=== PATIENT | female | born 1955 | race Caucasian/White ===

== ENCOUNTER 2018-12-02 13:49 | Inpatient (IN) | payer MEDICARE ==
--- NOTE | 2018-12-02 14:17 | ED Physician Chart ---
ED Chief Complaint/HPI - Patient Information Date Seen:: 12/02/18 Time Seen:: 14:12 Chief Complaint:: agitation History of Present Illness:: this is a 63 yo female who is here because of concern over her mental condition. she will be evaluated for placement in the psych unit in this hospital Allergies:: Allergies Allergy/AdvReac Type Severity Reaction Status Date / Time No Known Allergies Allergy Verified 12/02/18 14:04 Vitals:: Vital Signs - 8 hr 12/02/18 14:04 Temp 98.4 F HR 91 RR 17 BP 116/70 O2 Sat % 96 Historian:: Patient, Medical Records Review:: Nurse's Note Reviewed, Transfer documents Reviewed ED Review of Systems - Review of Systems General/Constitutional: No fever, No chills, No weight loss, No weakness, No diaphoresis, No edema, No loss of appetite Skin: No skin lesions, No rash, No bruising Head: No headache, No light-headedness Eyes: No loss of vision, No pain, No diplopia ENT: No earache, No nasal drainage, No sore throat, No tinnitus Neck: No neck pain, No swelling, No thyromegaly, No stiffness, No mass noted Cardio Vascular: No chest pain, No palpitations, No PND, No orthopnea, No edema Pulmonary: No SOB, No cough, No sputum, No wheezing GI: No nausea, No vomiting, No diarrhea, No pain, No melena, No hematochezia, No constipation, No hematemesis G/U: No dysuria, No frequency, No hematuria Musculoskeletal: No bone or joint pain, No back pain, No muscle pain Endocrine: No polyuria, No polydipsia Psychiatric: Prior psych history, No depression, No anxiety, No suicidal ideation Hematopoietic: No bruising, No lymphadenopathy Allergic/Immuno: No urticaria, No angioedema Neurological: No syncope, No focal symptoms, No weakness, No paresthesia, No headache, No seizure, No dizziness, No confusion, No vertigo ED Past Medical History - Past Medical History Obtainable: Yes Past Medical History: Other ( psychosis, and breast cancer) Family History: None Social History: Non Smoker, No Alcohol, No Drug Use, Surgical History: other (left breast biopsy) Psychiatricy History: Schizophrenia, Bipolar Medication: Reviewed Family Medical History - Family Member Mother History Unknown: Yes ED Physical Exam - Physical Examination General/Constitutional: Awake, Well-developed, well-nourished, Alert, No distress, GCS 15, Non-toxic appearing, Ambulatory Head: Atraumatic Eyes: Lids, conjuctiva normal, PERRL, EOMI Skin: Nl inspection, No rash, No skin lesions, No ecchymosis, Well hydrated, No lymphadenopathy ENMT: External ears, nose nl, Nasal exam nl, Lips, teeth, gums nl Neck: Nontender, Full ROM w/o pain, No JVD, No nuchal rigidity, No bruit, No mass, No stridor Respiratory: Nl effort/Exclusion, Clear to Auscultation, No Wheeze/Rhonchi/Rales Cardio Vascular: RRR, No murmur, gallop, rubs, NL S1 S2 GI: No tenderness/rebounding/guarding, No organomegaly, No hernia, Normal BS's, Nondistended, No mass/bruits, No McBurney tenderness : No CVA tenderness Extremities: No tenderness or effusion, Full ROM, normal strength in all extremities, No edema, Normal digits & nails Neuro/Psych: Alert/oriented, DTR's symmetric, Normal sensory exam, Normal motor strength, Judgement/insight normal, Mood normal (depressd mood), Normal gait, No focal deficits Misc: Normal back, No paraspinal tenderness ED Labs/Radiology/EKG Results - Radiology Results Results: chest x-ray = nad - EKG Interpretations EKG Time:: 14:02 Rate & Rhythm: rate = 103, sinus [place]: left axis ED Assessment - Assessment General Assessment: psychosis ED Septic Shock - . Is Septic Shock (SBP<90, OR Lactate>4 mmol\L) present?: No - <6hrs of presentation: Vital Signs: Vital Signs - 8 hr 12/02/18 14:04 Temp 98.4 F HR 91 RR 17 BP 116/70 O2 Sat % 96 ED Reassessment (Disposition) - Reassessment Reassessment Condition:: Unchanged - Diagnosis Diagnosis:: psychosis - Patient Disposition Discharge/Transfer:: Acute Care w/in this hosp Admitting Medical Physician:: Stanislaw Kemp Admitting Psych Physician:: Lonny Santana
[2018-12-02 14:27] LABS: % BASOPHILS 4.1 % (0.0-2.0); % EOSINOPHILS 1.8 % (0.0-5.0); % LYMPHOCYTES 7.1 % (20.0-50.0); % MONOCYTES 9.6 % (2.0-10.0); % NEUTROPHILS 77.4 % (40.0-80.0); BASOPHILE ABSOLUTE 0.3 Th/cumm (0-0.2); EOSINOPHILE ABSOLUTE 0.1 Th/cmm (0.1-0.4); HEMATOCRIT 38.3 % (41.0-60); HEMOGLOBIN 12.6 gm/dL (12-16); LYMPHOCYTE ABSOLUTE 0.5 Th/cmm (1.5-3.0); MEAN CELL VOLUME 98.6 fl (81-100); MEAN CORPUSCULAR HEMOGLOBIN 32.4 pg (27.0-31.0); MEAN CORPUSCULAR HGB CONC 32.8 pg (28.0-36.0); MEAN PLATELET VOLUME 7.9 fl; MONOCYTE ABSOLUTE 0.7 Th/cmm (0.3-1.0); NEUTROPHILE ABSOLUTE 5.2 Th/cmm (1.8-8.0); PLATELET COUNT 322 Th/cmm (150-400); RED BLOOD COUNT 3.89 Mil/cmm (3.80-5.20); RED CELL DISTRIBUTION WIDTH 13.8 % (11.5-20.0); WHITE BLOOD COUNT 6.8 Th/cmm (4.8-10.8)
--- NOTE | 2018-12-02 14:32 | Diagnostic Imaging Report ---
Portable chest x-ray HISTORY: Cough There is a poor inspiration. The heart appears to be somewhat enlarged. Atherosclerotic calcination seen in the aorta. Deformity consistent with old left rib fractures noted. No hilar or mediastinal abnormalities. A vascular catheter tip is in the superior vena cava near the junction with the right atrium. Arthritic changes noted about the shoulder regions. IMPRESSION: 1. No definite acute pulmonary processes 2. Deformity consistent with old left rib fracture 3. Cardiomegaly with atherosclerotic vascular changes
[2018-12-02 14:46] LABS: ALB/GLOB RATIO 2.1 (1.0-1.8); ALBUMIN 3.9 gm/dL (3.7-5.3); ALKALINE PHOSPHATASE 61 U/L (34-104); ANION GAP 14.8 (7.0-16.0); BILIRUBIN,TOTAL 0.4 mg/dL (0.3-1.0); BUN - UREA NITROGEN 20 mg/dL (7-25); CALCIUM SERUM 8.8 mg/dL (8.6-10.3); CARBON DIOXIDE 23.1 mEq/L (21.0-31.0); CHLORIDE 100 mEq/L (98-107); CREATININE - SERUM 0.9 mg/dL (0.6-1.2); GFR AFRICAN-AMERICAN > 60.0 ml/min (>90); GFR NON AFRICAN-AMERICAN > 60.0 ml/min; GLUCOSE 174 mg/dL (70-105); POTASSIUM SERUM 3.9 mEq/L (3.5-5.1); SGOT 12 U/L (13-39); SGPT/ALT 8 U/L (7-52); SODIUM SERUM 134 mEq/L (136-145); TOTAL PROTEIN,SERUM 5.8 gm/dL (6.0-8.3)
[2018-12-02 14:46] LABS: INR 1.09 (0.5-1.4); PROTHROMBIN TIME (TEST) 11.3 SECONDS (9.5-11.5)
[2018-12-02] MEDS ORDERED: guaiFENesin 200 MG/10 ML UDC PO PRN (20:44)
[2018-12-02] MEDS ORDERED: Maalox 30 mL Cup PO PRN (20:44)
[2018-12-02] MEDS ORDERED: Ipratropium Neb 0.5 mg/2.5 mL UD HHN PRN (20:44)
[2018-12-02] MEDS ORDERED: Albuterol Nebulizer 2.5mg/3mL HHN PRN (20:44)
[2018-12-02 21:38] VITALS: BP 126/85
[2018-12-02] MEDS: D5-0.45NS 1,000 ML IV SCH (22:08)
[2018-12-03 00:40] LABS: URINE SOURCE CLEAN C
[2018-12-03 00:43] LABS: URINE BILIRUBIN NEGATIVE (NEGATIVE); URINE BLOOD TRACE (NEGATIVE); URINE GLUCOSE (UA) NEGATIVE (NEGATIVE); URINE KETONE NEGATIVE (NEGATIVE); URINE LEUKOCYTE ESTERASE SMALL (NEGATIVE); URINE MICROSCOPIC INDICATED? YES; URINE NITRATE NEGATIVE (NEGATIVE); URINE PROTEIN TRACE mg/dL (NEGATIVE); URINE UROBILINOGEN 0.2 E.U./dL (0.2 - 1.0)
[2018-12-03 00:47] LABS: URINE CLARITY HAZY (CLEAR); URINE COLOR YELLOW
[2018-12-03 00:48] LABS: URINE RBC 0-2 /hpf (0-5)
[2018-12-03 00:49] LABS: URINE BACTERIA MODERATE /hpf (NONE SEEN); URINE EPITHELIAL CELLS MODERATE /lpf (FEW); URINE WBC 25-50 /hpf (0-5)
[2018-12-03] MEDS: Levothyroxine 0.05 Mg Tab PO SCH (06:46)
--- NOTE | 2018-12-03 08:50 | Diagnostic Imaging Report ---
Head CT without intravenous contrast Indication: Metastatic disease Comparison: None Technique: Axial images were obtained from the vertex to the skull base without IV contrast. Coronal reconstructions were made. Total DLP: 725, [id number] FINDINGS: Exam is limited due to lack of IV contrast. Images of the brain obtained without contrast demonstrate no evidence of acute hemorrhage. No mass effect or midline shift. No evidence of a skull fracture or focal soft tissue swelling. There may have been old nasal fractures. Note is made of abnormal sclerotic densities seen along the skull base including the clivus. There are also is suggestion of additional subtle calvarial sclerotic lesions. The visualized paranasal sinuses are clear. IMPRESSION: Limited exam due to lack of IV contrast. Abnormal sclerotic density seen along the skull base including the clivus region. There is also suggestion of additional subtle calvarial sclerotic lesions. Findings may be due to metastatic disease. Recommend clinical correlation and further assessment with nuclear medicine bone scan. No acute intracranial abnormality identified. No gross intracranial masses on this noncontrast exam. Further assessment with IV contrast if indicated.
[2018-12-03] MEDS: Pantoprazole 40 mg EC Tab PO SCH (09:47)
[2018-12-03] MEDS: Tolterodine Tartrate 4 mg ER Cap PO SCH (09:47)
[2018-12-03] MEDS ORDERED: cefTRIAXone 1 GM in Sodium Chloride 0.9% 50 ML IV SCH (13:00)
--- NOTE | 2018-12-03 13:07 | History & Physical ---
ADMIT DATE: 12/02/2018 CHIEF COMPLAINT: Increasing agitation. HISTORY OF PRESENT ILLNESS: This is a 63-year-old female with history of metastatic left breast cancer, bipolar disorder, gastroesophageal reflux disease, gait instability, admitted secondary to increasing agitation. The patient has a PICC line in the right upper extremity, unable to be cleared for Geropsych admission. PAST MEDICAL HISTORY: As mentioned in history of present illness. PAST SURGICAL HISTORY: Status post right upper extremity PICC line, left breast lumpectomy as well as implants. ALLERGIES: No known drug allergies. MEDICATIONS: Lasix ____ Depakote, Colace, fentanyl 100 mcg, pantoprazole, Seroquel, Risperdal, trazodone, ____ FAMILY HISTORY: Denies diabetes or coronary artery disease. SOCIAL HISTORY: Nonsmoker, nondrinker. Intermittent drug use. She is with one child. Used to be a teacher. REVIEW OF SYSTEMS: GENERAL: Complains not feeling well. HEENT: No blurred vision or pain. LUNGS: No diagnosis of chronic obstructive pulmonary disease or asthma. HEART: The patient denies hypertension. ABDOMEN: The patient with on and off pain, history of reflux. HEMATOLOGY/ONCOLOGY: The patient with a left breast cancer, being followed by Dr. Diaz; last chemo was about last week. PSYCHIATRIC: Stable. PHYSICAL EXAMINATION: VITAL SIGNS: Blood pressure 143/85, respiratory rate 18, pulse 93, and temperature 98.2. GENERAL: An elderly female, appears chronically ill. NECK: Supple. No mass. LUNGS: Equal breath sounds, few rhonchi. HEART: Regular rate and rhythm without appreciable murmur. ABDOMEN: Soft and globular. Positive bowel sounds. EXTREMITIES: Positive excoriation. NEUROLOGIC: Limited. Right upper extremity PICC line. LABORATORY DATA: WBC 6, hemoglobin 12, and platelets 322. PTT 23. Sodium 134, potassium 3.9, BUN 20, creatinine 0.9, blood sugar 174. TSH 2.02. UA: Trace wbc and moderate bacteria. ASSESSMENT AND PLAN: Agitation, urinary tract infection, metastatic left breast cancer, hyperglycemia, hyponatremia, hypothyroidism, gait instability, gastroesophageal reflux disease. PLAN: I will continue the patient on oxygen ____ continue on IV antibiotic. Continue pain medication. We will refer the patient to Psychiatry as well as Oncology. Please see my orders. [facility]# [id number]
[2018-12-03] MEDS ORDERED: fentaNYL 100 mcg/hr Tdm Patch TD SCH (14:00)
[2018-12-03] MEDS: D5-0.45NS 1,000 ML IV SCH (17:50)
--- NOTE | 2018-12-03 21:04 | Consultation ---
DATE OF CONSULTATION: 12/03/2018 REQUESTING PHYSICIAN: Stanislaw Kemp DO REASON FOR CONSULTATION: History of psychosis. HISTORY OF PRESENT ILLNESS: This patient is a 63-year-old woman admitted for agitation and psychosis. This patient reported to have been diagnosed to have schizoaffective disorder and has been on multiple medications. The patient is also reported to have been diagnosed to have a history of metastatic left breast cancer and the patient is being followed up by Dr. Goldstein. The patient has been admitted over here because of increasing agitation. The patient has a PICC line in right upper extremity. A psychiatric consultation is called to address the issue of the agitation. The patient is interviewed: Staff was spoken to. The patient is being followed up by Dr. Funez on an outpatient basis. The patient is currently on Depakote and Seroquel, Risperdal, and trazodone. During the interview, the patient has been noted to be very anxious and is stating that she is very much worried about the Trump is saying on the TV and she states that her life is affected by it. The patient has been having difficult time to cope with the stress. Sleep is noted to be poor. Appetite is also noted to be poor. PAST PSYCHIATRIC HISTORY: The patient is stating that she is under the psychiatric treatment. She was hospitalized once before, but she is not able to give the details. MEDICAL HISTORY: The patient is reported to have a history of metastatic breast CA and the patient has GERD and the patient is being medically stabilized at this time. PAST PSYCHIATRIC HISTORY: Please refer to the above. SOCIAL HISTORY: The patient is living with her family and the patient has been diagnosed with the cancer of the breast, but there is no history of any diabetes or hypertension. 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 MENTAL STATUS EXAMINATION: The patient is a 63-year-old, looking her stated age. The patient has been presenting with the tremor in both the extremities and she would stop shaking for a while and then goes on. Mood is noted to be anxious and depressed. Affect is constricted. The patient is paranoid. The patient has been focused on Trump whom she has been seeing on the TV. The patient is not presenting with any command hallucinations. The patient is not suicidal or homicidal. Insight and judgment are noted to be fair. Impulse control seems to be fair. The patient has been stating that she is scheduled to see Dr. Funez pretty soon. The patient is alert and oriented to time, place and person. DIAGNOSTIC IMPRESSION: AXIS I: Bipolar disorder, mixed with psychotic symptoms, rule out schizoaffective disorder. AXIS II: None. AXIS III: As per Dr. Kemp. IMMEDIATE TREATMENT PLAN: The patient is going to be continued on her current medications the Depakote, Risperdal, and Seroquel. Once the patient is medically stabilized, the patient is possibly going to be discharged to the family for followup on outpatient basis. JOB# [id number]
--- NOTE | 2018-12-03 21:39 | Consultation ---
DATE OF CONSULTATION: HISTORY OF PRESENT ILLNESS: This is a patient who is well known to me. The patient has a history of breast carcinoma and the patient has been on chemotherapy. The patient has stage IV cancer. The patient recently was found to have excessive amount of nausea. The patient's medicines were readjusted and the patient's nausea is much better. Recently, the patient has been more agitated. She has been having shakes and agitation. She is unable to sleep. The patient was brought to the Emergency Room from where the patient was admitted to the hospital. The patient has no chest pain, has no shortness of breath. However, the patient is very agitated and she is having shakes mostly of the upper extremities. The patient has a history of breast carcinoma, which is stage IV cancer with bone metastatic disease. The patient recently had a PET scan, which showed cancer confined to the bones and the patient is on chemotherapy and the patient is also on anastrozole. The patient also has a history of bipolar and has been recently agitated. PHYSICAL EXAMINATION: GENERAL: The patient appears agitated. The patient is tired, says she has insomnia. HEENT: Normocephalic. NECK: Supple. JVP is not raised. Thyroid is not palpable and trachea central. CHEST: Symmetrical, both parts of the chest moving equally with respiration. LUNGS: There are normal breath sounds bilaterally. CARDIOVASCULAR: S1, S2 normal. There is no S3. ABDOMEN: Soft. Liver, spleen, kidney not palpable. No masses, no ascites, no shifting dullness. EXTREMITIES: No evidence of thrombophlebitis or edema. IMPRESSION: 1. Breast carcinoma with bony metastatic disease stage IV cancer. The patient is on anastrozole and chemotherapy 2. Bipolar, depression, agitation. PLAN: The patient oncologically is stable. The patient needs a psych evaluation and may be the adjustment of the medications. Thank you for allowing me to participate in the care of this patient. We will follow with you in the hospital as needed. JOB# [id number]
[2018-12-04 05:42] LABS: HEMATOCRIT 36.1 % (41.0-60); MEAN CELL VOLUME 98.2 fl (81-100); MEAN CORPUSCULAR HEMOGLOBIN 32.5 pg (27.0-31.0); MEAN CORPUSCULAR HGB CONC 33.1 pg (28.0-36.0); MEAN PLATELET VOLUME 8.8 fl; PLATELET COUNT 313 Th/cmm (150-400); RED BLOOD COUNT 3.68 Mil/cmm (3.80-5.20); RED CELL DISTRIBUTION WIDTH 13.7 % (11.5-20.0)
[2018-12-04 05:57] LABS: ANION GAP 13.6 (7.0-16.0); BUN - UREA NITROGEN 14 mg/dL (7-25); CALCIUM SERUM 9.2 mg/dL (8.6-10.3); CARBON DIOXIDE 23.2 mEq/L (21.0-31.0); CHLORIDE 106 mEq/L (98-107); CREATININE - SERUM 0.7 mg/dL (0.6-1.2); GFR AFRICAN-AMERICAN > 60.0 ml/min (>90); GFR NON AFRICAN-AMERICAN > 60.0 ml/min; GLUCOSE 113 mg/dL (70-105); MAGNESIUM 2.2 mg/dL (1.9-2.7); POTASSIUM SERUM 3.8 mEq/L (3.5-5.1); SODIUM SERUM 139 mEq/L (136-145)
[2018-12-04 06:27] LABS: BAND NEUTROPHILE 0 % (0-10); EOSINOPHIL 2 % (0-5); LYMPHOCYTE 7 % (20-50); MONOCYTE 16 % (2-10); NEUTROPHILS 75 % (40-80)
[2018-12-04 06:28] LABS: BASOPHIL 0 % (0-3); PLATELET ESTIMATE ADEQUATE (NORMAL)
[2018-12-04] MEDS: Levothyroxine 0.05 Mg Tab PO SCH (07:00)
[2018-12-04] MEDS: Tolterodine Tartrate 4 mg ER Cap PO SCH (08:52)
[2018-12-04] MEDS: Pantoprazole 40 mg EC Tab PO SCH (08:53)
--- NOTE | 2018-12-04 12:51 | Internal Medicine Prog Note ---
Internal Medicine Subjective - Subjective Patient seen and examined:: with staff, chart reviewed, other (motehr at bedside ) Patient is:: awake, verbal, interactive, in bed, denies any new complaints Per staff patient has:: no adverse event, no episodes of fall, poor appetite, tolerating meds Internal Medicine Objective - Results Result Diagrams: 12/04/18 04:42 12/04/18 04:42 Recent Labs: Laboratory Last Values WBC 6.0 Th/cmm (4.8-10.8) 12/04/18 04:42 RBC 3.68 Mil/cmm (3.80-5.20) L 12/04/18 04:42 Hgb 12.0 gm/dL (12-16) 12/04/18 04:42 Hct 36.1 % (41.0-60) L 12/04/18 04:42 MCV 98.2 fl (81-100) 12/04/18 04:42 MCH 32.5 pg (27.0-31.0) H 12/04/18 04:42 MCHC Differential 33.1 pg (28.0-36.0) 12/04/18 04:42 RDW 13.7 % (11.5-20.0) 12/04/18 04:42 Plt Count 313 Th/cmm (150-400) 12/04/18 04:42 MPV 8.8 fl 12/04/18 04:42 Add Manual Diff YES 12/04/18 04:42 Neutrophils % 77.4 % (40.0-80.0) 12/02/18 14:20 Band Neutrophils % 0 % (0-10) 12/04/18 04:42 Lymphocytes % 7.1 % (20.0-50.0) L 12/02/18 14:20 Monocytes % 9.6 % (2.0-10.0) 12/02/18 14:20 Eosinophils % 1.8 % (0.0-5.0) 12/02/18 14:20 Basophils % 4.1 % (0.0-2.0) H 12/02/18 14:20 Neutrophils (Manual) 75 % (40-80) 12/04/18 04:42 Lymphocytes 7 % (20-50) L 12/04/18 04:42 Monocytes 16 % (2-10) H 12/04/18 04:42 Eosinophils 2 % (0-5) 12/04/18 04:42 Basophils 0 % (0-3) 12/04/18 04:42 Platelet Estimate ADEQUATE (NORMAL) 12/04/18 04:42 PT 11.3 SECONDS (9.5-11.5) 12/02/18 14:10 INR 1.09 (0.5-1.4) 12/02/18 14:10 PTT (Actin FS) 23.2 SECONDS (26.0-38.0) L 12/02/18 14:10 Sodium 139 mEq/L (136-145) 12/04/18 04:42 Potassium 3.8 mEq/L (3.5-5.1) 12/04/18 04:42 Chloride 106 mEq/L (98-107) 12/04/18 04:42 Carbon Dioxide 23.2 mEq/L (21.0-31.0) 12/04/18 04:42 Anion Gap 13.6 (7.0-16.0) 12/04/18 04:42 BUN 14 mg/dL (7-25) 12/04/18 04:42 Creatinine 0.7 mg/dL (0.6-1.2) 12/04/18 04:42 Est GFR ( Amer) > 60.0 ml/min (>90) 12/04/18 04:42 Est GFR (Non-Af Amer) > 60.0 ml/min 12/04/18 04:42 BUN/Creatinine Ratio 20.0 12/04/18 04:42 Glucose 113 mg/dL (70-105) H 12/04/18 04:42 Calcium 9.2 mg/dL (8.6-10.3) 12/04/18 04:42 Magnesium 2.2 mg/dL (1.9-2.7) 12/04/18 04:42 Total Bilirubin 0.4 mg/dL (0.3-1.0) 12/02/18 14:20 AST 12 U/L (13-39) L 12/02/18 14:20 ALT 8 U/L (7-52) 12/02/18 14:20 Alkaline Phosphatase 61 U/L (34-104) 12/02/18 14:20 Ammonia 60 umol/L (16-53) H 12/04/18 04:42 Troponin I < 0.01 ng/mL (0.01-0.05) L 12/02/18 14:20 B-Natriuretic Peptide 31.2 pg/mL (5.0-100.0) 12/04/18 04:42 Total Protein 5.8 gm/dL (6.0-8.3) L 12/02/18 14:20 Albumin 3.9 gm/dL (3.7-5.3) 12/02/18 14:20 Globulin 1.9 gm/dL 12/02/18 14:20 Albumin/Globulin Ratio 2.1 (1.0-1.8) H 12/02/18 14:20 TSH 6.02 uIU/ml (0.34-5.60) H 12/02/18 14:20 Urine Source CLEAN C 12/03/18 00:29 Urine Color YELLOW 12/03/18 00:29 Urine Clarity HAZY (CLEAR) 12/03/18 00:29 Urine pH 6.0 (4.6 - 8.0) 12/03/18 00:29 Ur Specific [place] 1.025 (1.005-1.030) 12/03/18 00:29 Urine Protein TRACE mg/dL (NEGATIVE) 12/03/18 00:29 Urine Glucose (UA) NEGATIVE mg/dL (NEGATIVE) 12/03/18 00:29 Urine Ketones NEGATIVE mg/dL (NEGATIVE) 12/03/18 00:29 Urine Blood TRACE (NEGATIVE) 12/03/18 00:29 Urine Nitrate NEGATIVE (NEGATIVE) 12/03/18 00:29 Urine Bilirubin NEGATIVE (NEGATIVE) 12/03/18 00:29 Urine Urobilinogen 0.2 E.U./dL (0.2 - 1.0) 12/03/18 00:29 Ur Leukocyte Esterase SMALL (NEGATIVE) H 12/03/18 00:29 Urine RBC 0-2 /hpf (0-5) 12/03/18 00:29 Urine WBC 25-50 /hpf (0-5) H 12/03/18 00:29 Ur Epithelial Cells MODERATE /lpf (FEW) 12/03/18 00:29 Urine Bacteria MODERATE /hpf (NONE SEEN) H 12/03/18 00:29 - Physical Exam Vitals and I&O: Vital Signs Temp 98.5 F 12/04/18 12:00 Pulse 111 12/04/18 12:00 Resp 19 12/04/18 12:00 BP 167/82 12/04/18 12:00 Pulse Ox 95 12/04/18 12:00 Intake & Output 12/03/18 12/04/18 12/04/18 18:59 06:59 18:59 Intake Total 1000 Balance 1000 Intake: Intake, IV Amount 1000 D5-0.45NS 1,000 ml @ 60 1000 mls/hr IV .[id number] [facility] Rx #:[id number] Active Medications: Current Medications Acetaminophen (Tylenol) 650 mg PO Q4H PRN PRN Reason: Pain Or Fever above 101 Stop: 01/31/19 20:43 Last Admin: 12/04/18 08:52 Dose: 650 mg Al Hydrox/Mg Hydrox/Simethicone (Maalox) 30 ml PO Q6H PRN PRN Reason: Dyspepsia Stop: 01/31/19 20:43 Albuterol Sulfate (Albuterol 2.5mg/3ml Neb Ud) 2.5 mg HHN Q2HRT PRN PRN Reason: Shortness of Breath or Wheeze Stop: 01/31/19 20:43 Anastrozole (Arimidex) 1 mg PO DAILY [facility]; Protocol Stop: 02/01/19 08:59 Last Admin: 12/04/18 08:52 Dose: 1 mg Divalproex Sodium (Depakote Er) 250 mg PO BID [facility]; Protocol Stop: 02/01/19 08:59 Last Admin: 12/04/18 08:53 Dose: 250 mg Docusate Sodium (Colace) 250 mg PO BID [facility] Stop: 02/01/19 08:59 Last Admin: 12/04/18 08:53 Dose: 250 mg Fentanyl (Duragesic 100 Mcg/Hr Tdm Patch) 1 patch TD Q72H [facility]; Protocol Stop: 02/01/19 13:59 Last Admin: 12/03/18 15:30 Dose: 1 patch Guaifenesin (Robitussin) 200 mg PO Q4HR PRN PRN Reason: Cough or Congestion Stop: 01/31/19 20:43 Heparin Sodium (Porcine) (Heparin) 5,000 units SUBQ Q12HR [facility] Stop: 01/31/19 20:59 Last Admin: 12/04/18 08:54 Dose: 5,000 units Dextrose/Sodium Chloride (D5-0.45ns) 1,000 mls @ 60 mls/hr IV .[id number] [facility] Stop: 01/31/19 20:44 Last Admin: 12/03/18 17:50 Dose: 60 mls/hr Ipratropium [place] (Atrovent Neb 0.5mg/2.5ml) 0.5 mg HHN Q2HRT PRN PRN Reason: Shortness of Breath or Wheeze Stop: 01/31/19 20:43 Levothyroxine Sodium (Synthroid) 0.05 mg PO QDAC [facility] Stop: 02/01/19 07:29 Last Admin: 12/04/18 07:00 Dose: 0.05 mg Ondansetron HCl (Zofran) 4 mg IV Q8H PRN PRN Reason: Nausea / Vomiting Stop: 01/31/19 20:43 Pantoprazole Sodium (Protonix) 40 mg PO DAILY [facility] Stop: 02/01/19 08:59 Last Admin: 12/04/18 08:53 Dose: 40 mg Quetiapine Fumarate (Seroquel) 25 mg PO HS [facility]; Protocol Stop: 02/01/19 20:59 Last Admin: 12/03/18 21:33 Dose: 25 mg Tolterodine Tartrate (Detrol [place]) 4 mg PO DAILY [facility] Stop: 02/01/19 08:59 Last Admin: 12/04/18 08:52 Dose: 4 mg Trazodone HCl (Desyrel) 50 mg PO HS [facility]; Protocol Stop: 01/31/19 20:59 Last Admin: 12/03/18 21:33 Dose: 50 mg Zolpidem Tartrate (Ambien) 10 mg PO HS PRN PRN Reason: Insomnia Stop: 01/31/19 20:43 Last Admin: 12/03/18 23:07 Dose: 10 mg General: alert HEENT: NC/AT, PERRLA Neck: Supple, No JVD Lungs: CTAB Cardiovascular: RRR, Normal S1, Normal S2, without murmur Abdomen: soft, non-tender, globular, positive bowel sound Extremities: excoriation, contracture Internal Medicine Assmt/Plan - Assessment Assessment: ASSESSMENT AND PLAN: Agitation, urinary tract infection, metastatic left breast cancer, hyperglycemia, hyponatremia, hypothyroidism, gait instability, gastroesophageal reflux disease. - Plan Plan: mother refused dc PLAN: I will continue the patient on oxygen ____ continue on IV antibiotic. Continue pain medication. We will refer the patient to Psychiatry as well as Oncology. Please see my orders.
[2018-12-04] MEDS: cefTRIAXone 1 GM in Sodium Chloride 0.9% 50 ML IV SCH (22:14)
[2018-12-04] MEDS: D5-0.45NS 1,000 ML IV SCH (23:12)
[2018-12-05] MEDS: Levothyroxine 0.05 Mg Tab PO SCH (06:39)
[2018-12-05 06:44] LABS: EOSINOPHILE ABSOLUTE 0.2 Th/cmm (0.1-0.4); HEMATOCRIT 33.5 % (41.0-60); HEMOGLOBIN 11.1 gm/dL (12-16); LYMPHOCYTE ABSOLUTE 0.5 Th/cmm (1.5-3.0); MEAN CELL VOLUME 99.3 fl (81-100); MEAN CORPUSCULAR HGB CONC 33.3 pg (28.0-36.0); MEAN PLATELET VOLUME 8.8 fl; MONOCYTE ABSOLUTE 0.8 Th/cmm (0.3-1.0); NEUTROPHILE ABSOLUTE 2.8 Th/cmm (1.8-8.0); PLATELET COUNT 283 Th/cmm (150-400); RED BLOOD COUNT 3.37 Mil/cmm (3.80-5.20); RED CELL DISTRIBUTION WIDTH 13.6 % (11.5-20.0); WHITE BLOOD COUNT 4.3 Th/cmm (4.8-10.8)
[2018-12-05 06:55] LABS: ANION GAP 10.5 (7.0-16.0); BUN - UREA NITROGEN 14 mg/dL (7-25); CARBON DIOXIDE 25.4 mEq/L (21.0-31.0); CHLORIDE 110 mEq/L (98-107); CREATININE - SERUM 0.7 mg/dL (0.6-1.2); GFR AFRICAN-AMERICAN > 60.0 ml/min (>90); GFR NON AFRICAN-AMERICAN > 60.0 ml/min; GLUCOSE 104 mg/dL (70-105); POTASSIUM SERUM 3.9 mEq/L (3.5-5.1); SODIUM SERUM 142 mEq/L (136-145)
[2018-12-05 08:01] LABS: EOSINOPHIL 3 % (0-5); LYMPHOCYTE 14 % (20-50); MONOCYTE 15 % (2-10); NEUTROPHILS 68 % (40-80); PLATELET ESTIMATE ADEQUATE (NORMAL)
[2018-12-05] MEDS: Tolterodine Tartrate 4 mg ER Cap PO SCH (09:07)
[2018-12-05] MEDS: Pantoprazole 40 mg EC Tab PO SCH (09:08)
[2018-12-05] MEDS: cefTRIAXone 1 GM in Sodium Chloride 0.9% 50 ML IV SCH (09:08)
[2018-12-05] MEDS ORDERED: Sulfamethoxazole/TMP 800/160mg Tab PO SCH (17:00)
--- NOTE | 2018-12-05 20:31 | Discharge Summary ---
DATE OF DISCHARGE: 12/05/2018 CHIEF COMPLAINT: Increasing agitation. FINAL DIAGNOSES: Urinary tract infection, increasing agitation, breast carcinoma, hyperglycemia, hyponatremia, hypothyroidism, gait instability, and GERD. HISTORY: This 62-year-old female with history of metastatic breast cancer with blood disorder, GERD, admitted initially secondary to increasing agitation. This patient is supposed to go to [facility], but given the patient's PICC line. The patient was unable to be admitted. The patient also diagnosed with UTI in the interim. PHYSICAL EXAMINATION: VITAL SIGNS: Blood pressure 140/80, respiration 19, pulse 90, temperature 98.4. GENERAL: Elderly female, appears her stated age, chronically ill. NECK: Supple. No mass. LUNGS: Equal breath sounds, few rhonchi. HEART: Regular rate and rhythm without appreciable murmurs. ABDOMEN: Soft, globular. EXTREMITIES: Positive excoriation. PICC line to right upper extremity. HOSPITAL COURSE: The patient was admitted to medical floor, continue oxygen and bronchodilator treatment and IV hydration and IV antibiotic. The patient was referred to Dr. Diaz for Oncology, Dr. Santana for Psychiatry. The patient to be transferred to Behavioral Unit could take care of a PICC line. CONDITION ON DISCHARGE: Fair. DISCHARGE INSTRUCTIONS: The patient to be transferred under the psychiatric attending. The patient to follow with Oncology as well upon discharge. JOB# [id number]
--- NOTE | 2018-12-06 06:46 | Progress Notes ---
DATE: 12/05/2018 PSYCHIATRIC PROGRESS NOTE SUBJECTIVE: Staff was spoken to. The patient is interviewed. Mood is noted to be anxious. The patient started to shake a lot and when she is told to hold on shaking, the patient stopped shaking of her hands. Insight and judgment are noted to be still impaired. Impulse control is noted to be poor. The patient has paranoid delusions and the patient is feeling that she has ____. ASSESSMENT: The patient is still psychotic, but not suicidal or homicidal. PLAN: To continue the patient with the supportive therapy. I encouraged the patient to verbalize the concerns rather than to act out. JOB# [id number]
== END 2018-12-05 17:40 | disposition short-term general hospital (02) | DRG 690 ==
LOC: ER 13:49 → GERO2 19:52 → MSI 20:35
PROVIDERS: ADMIT Internal Medicine; ATTEND Internal Medicine
DX: N39.0 Urinary tract infection, site not specified (principal); F31.64 Bipolar disorder, current episode mixed, severe, with psychotic features; R65.10 Systemic inflammatory response syndrome (SIRS) of non-infectious origin without acute organ dysfunction; C79.51 Secondary malignant neoplasm of bone; E87.1 Hypo-osmolality and hyponatremia; C50.912 Malignant neoplasm of unspecified site of left female breast; R73.9 Hyperglycemia, unspecified; E03.9 Hypothyroidism, unspecified; R26.9 Unspecified abnormalities of gait and mobility; K21.9 Gastro-esophageal reflux disease without esophagitis
CPT/HCPCS: 36415-UA; 70450-TC; 71045-TC; 80048-TC; 80053-TC; 81001-TC; 82140-TC; 83735-TC; 83880-TC; 84443-TC; 84484-TC; 85007-TC; 85025-TC; 85610-TC; 85730-TC; 87086-90; 93005; 94760; J0696; J1644; J2060; Z7610